=== PATIENT | female | born 1965 | race Caucasian/White ===

== ENCOUNTER 2019-05-31 22:33 | Emergency (ER) | payer OTHER ==
[~2019-05-31 22:33] MED LIST: Iopamidol 370 76% 100 ML VIAL ONE
[2019-06-01 00:40] LABS: #Basophils 0.1 thou/uL (0.0-0.2); #Eosinphils 0.2 thou/uL (0.0-0.7); #Lymphocytes 1.6 thou/uL (1.20-3.40); #Monocytes 0.8 thou/uL (0.11-0.59); #Neutrophils 8.4 thou/uL (1.40-6.50); %Basophils 0.6 % (0.0-1.0); %Eosinophils 1.8 % (0.0-10.0); %Lymphocytes 14.6 % (21.0-51.0); %Monocytes 7.4 % (0.0-10.0); %Neutrophils 75.7 % (42.0-75.0); Hemoglobin 11.2 g/dL (12.0-16.0); Mean Corpuscular Hemoglobin 27.7 pg (27.0-31.0); Mean Corpuscular Volume 86.5 fL (78.0-98.0); Mean Platelet Volume 7.5 fL (7.4-10.4); Platelet Count 315 thou/uL (130-400); RBC Distribution Width 15.4 % (11.5-14.5); Red Blood Cell (RBC) Count 4.03 mill/uL (4.20-5.40); White Blood Cell (WBC) Count 11.1 thou/uL (4.8-10.8)
[2019-06-01] MEDS ORDERED: Mag-Al 1200 mg/1200 mg/30 ML UDCUP ONE (00:45)
[2019-06-01] MEDS ORDERED: Lidocaine Viscous Sol 2% 15 ml UD Cup ONE (00:45)
[2019-06-01 00:48] LABS: INR-International Normal Ratio 1.2; PTT 29.7 SEC (22.9-36.1); Prothrombin Time 15.5 SEC (12.0-14.7)
[2019-06-01 01:01] LABS: ALT (SGPT) 14 U/L (8-55); AST (SGOT) 33 U/L (5-34); Albumin 2.9 g/dL (3.5-5.0); Alkaline Phosphatase 83 U/L (40-110); Anion Gap 13 mmol/L (10-20); BUN (Urea Nitrogen) 7 mg/dL (9.8-20.1); Bilirubin, Total 0.3 mg/dL (0.2-1.2); Calc. Creatinine Clearance 0 mL/min (70-130); Calcium 8.5 mg/dL (7.8-10.44); Carbon Dioxide 24 mmol/L (22-29); Chloride 100 mmol/L (98-107); Estimated GFR-MDRD 79; Globulin 3.9 g/dL (2.4-3.5); Glucose 131 mg/dL (70-105); Potassium 3.4 mmol/L (3.5-5.1); Protein, Total 6.8 g/dL (6.0-8.3); Sodium 134 mmol/L (136-145)
--- NOTE | 2019-06-01 07:33 | CT ---
CT ABDOMEN AND PELVIS WITH CONTRAST: Date: 05/31/2019 COMPARISON: None. HISTORY: Cirrhosis of liver. Patient drank [employer] 6 hours ago with abdominal pain that began 3 hours ag o. TECHNIQUE: Multiple contiguous axial images were obtained in a CT of the abdomen and pelvis with contrast. Sagit nneka and coronal reformats are performed. FINDINGS: The liver is nodular and cirrhotic in appearance. The gallbladder has been removed. There is a small to moderate amount of ascites. No focal liver lesions are appreciated. The kidneys, adrenal glands, s pleen, and pancreas are unremarkable. The patient is status post hysterectomy. The large and small bowel are unremarkable. The appendix is normal. No abdominal or pelvic lymphadenopathy seen. Atherosclerotic calcifications are seen in the a brii. Degenerative changes are seen in the spine. Atelectasis is seen in the left lung base. Soft tissue an asarca is seen. IMPRESSION: Cirrhosis with ascites. POS: [facility]
--- NOTE | 2019-06-01 07:38 | ULT ---
LEFT LOWER EXTREMITY VENOUS ULTRASOUND: Date: 05/31/2019 COMPARISON: None. HISTORY: Left lower extremity pain and edema. TECHNIQUE: Multiplanar Neff scale and color Doppler images were obtained in a left lower extremity venous ultra sound. Spectral analysis of the Doppler waveforms were performed. FINDINGS: The left common femoral vein, profunda femoral vein, and superficial femoral vein are normal in appea mason without thrombus. The patient refused completion of the vein and the popliteal vein and posteri or tibial vein was not scanned. The greater saphenous vein is patent without evidence of thrombus. IMPRESSION: No evidence of deep venous thrombosis seen in the proximal aspect of the left leg. POS: [facility]
== END 2019-06-01 03:21 | disposition home or self-care (01) ==
LOC: ERS 22:33
DX: R18.8 Other ascites (principal); E11.9 Type 2 diabetes mellitus without complications; E03.9 Hypothyroidism, unspecified; I10 Essential (primary) hypertension; F41.9 Anxiety disorder, unspecified; F17.210 Nicotine dependence, cigarettes, uncomplicated; Z79.899 Other long term (current) drug therapy; Z87.19 Personal history of other diseases of the digestive system
CPT/HCPCS: 36415; 74177; 80053; 85025; 85610; 85730; 96372; J0500; Q9967